=== PATIENT | male | born 1995 | race American Indian/Alaskan Native ===

== ENCOUNTER 2017-04-21 00:04 | Emergency (ER) | payer BC ==
[2017-04-21 01:03] VITALS: BP 114/72
== END 2017-04-21 05:17 | disposition left against medical advice (07) ==
LOC: ED 00:04
DX: S01.81XA Laceration without foreign body of other part of head, initial encounter (principal); Z53.21 Procedure and treatment not carried out due to patient leaving prior to being seen by health care provider; W45.8XXA Other foreign body or object entering through skin, initial encounter; Y93.89 Activity, other specified; Y92.89 Other specified places as the place of occurrence of the external cause; Y99.8 Other external cause status